=== PATIENT | female | born 1995 | race Two or more races ===

== ENCOUNTER 2019-05-01 17:51 | Emergency (ER) | payer OTHER ==
[~2019-05-01] VITALS: Ht 162.6 cm; Wt 70.3 kg
[2019-05-01] MEDS ORDERED: SODIUM CHLORIDE 0.9% 1,000 ML IV ONE (18:15)
[2019-05-01 18:32] LABS: Basophils # (auto) 0 uL; Basophils % (auto) 0.4 % (0.0-2.0); Eosinophils # (auto) 0.1 uL; Eosinophils % (auto) 0.7 % (0.0-7.0); Hemoglobin 11.2 g/dL (12.2-16.2); Lymphocytes # (auto) 2.2 uL; Lymphocytes % (auto) 18.6 % (10.0-50.0); Mean Corpuscular Hemoglobin 29.8 pg (28.0-32.0); Mean Corpuscular Hgb Conc. 33.9 g/dL (32.0-36.0); Monocytes # (auto) 0.6 uL; Monocytes % (auto) 4.9 % (0.0-12.0); Neutrophils # (auto) 8.9 uL; Neutrophils % (auto) 75.4 % (37.0-80.0); Platelet Count (auto) 285 10^3/uL (140-450); Red Blood Cells 3.75 10^6/uL (4.0-5.20); Red Cell Distribution Width 13.5 % (11.8-14.3); White Blood Cell 11.8 10^3/uL (4.4-10.8)
[2019-05-01 18:47] LABS: INR 0.95 (0.9-1.15); Partial Thromboplastin Time 24.5 sec (23.64-32.05)
[2019-05-01 19:03] LABS: Calcium 7.7 mg/dL (8.5-10.1); Potassium 3.8 mmol/L (3.5-5.1)
[2019-05-01 19:05] LABS: BUN/Creatinine Ratio 12.7
[2019-05-01 19:08] LABS: Albumin 3.1 g/dL (3.4-5.0); Bilirubin, Total 0.3 mg/dL (0.2-1.0); Total Protein 5.9 g/dL (6.4-8.2)
[2019-05-01 19:59] LABS: Urine Bacteria NONE SEEN /hpf (None Seen); Urine Blood 2+ /uL (Negative); Urine Specific Gravity 1.005 (1.001-1.035); Urine WBC 1 /hpf (0 - 5)
[2019-05-01] MEDS ORDERED: METHYLERGONOVINE MALEATE 0.2 MG/ML AMP IM ONE (20:15)
[2019-05-01] MEDS ORDERED: LACT. RINGERS/OXYTOCIN 20UNITS 1,000 ML IV ONE (20:15)
[2019-05-01] MEDS ORDERED: PROMETHAZINE HCL 25 MG/ML 1ML IV ONE (21:30)
[2019-05-01 23:08] VITALS: BP 106/54
== END 2019-05-01 20:36 | disposition short-term general hospital (02) ==
LOC: ER 17:51 → EDBD 17:51 → ER 20:36
DX: O72.1 Other immediate postpartum hemorrhage (principal); N93.9 Abnormal uterine and vaginal bleeding, unspecified; O90.81 Anemia of the puerperium; O73.1 Retained portions of placenta and membranes, without hemorrhage; R11.2 Nausea with vomiting, unspecified
CPT/HCPCS: 36415; 76856; 80053; 81001; 84702; 85025; 85610; 85730; 86850; 86870; 86900; 86901; 94761; 96361; 96365; 96366; 96372; 96375; 99291; J2210; J2550; J2590; J7030